=== PATIENT | female | born 1995 | race African-American/Black ===

== ENCOUNTER 2016-08-27 15:04 | Emergency (ER) | payer OTHER ==
[~2016-08-27] VITALS: Ht 165.1 cm; Wt 103.0 kg
[~2016-08-27 15:04] MED LIST: MUCINEX1200 MG PO; VENTOLIN HFA18 GM IH
[2016-08-27 16:24] LABS: HEMATOCRIT 37.4 % (36.0-46.0); MCH 27.5 PG (29.0-34.0); MCHC 32.6 G/DL (30.0-36.0); MCV 84.2 FL (83-99); PLATELET COUNT 359 K/uL (156-360); RBC DIS.WIDTH-CV 13.3 % (11.8-14.6); RBC DIS.WIDTH-SD 40.5 % (39-53); RED BLOOD COUNT 4.44 M/uL (3.80-5.20); WHITE BLOOD COUNT 12.7 K/uL (4.1-10.2)
[2016-08-27 16:35] LABS: CHLORIDE 108 mEq/L (99-109); POTASSIUM 3.6 mEq/L (3.7-5.4); SODIUM 137 mEq/L (136-147)
[2016-08-27 16:36] LABS: GLUCOSE 73 mg/dL (70-99)
[2016-08-27 16:38] LABS: ANION GAP 7 MEQ/L (2-14)
[2016-08-27 16:40] LABS: GFR ESTIMATE (CALCULATED) > 59 mL/min/
[2016-08-27 16:41] LABS: UREA NITROGEN (BUN) 6 mg/dL (9-23)
[2016-08-27 16:57] LABS: ADD MIUA? NO; BILIRUBIN NEGATIVE; BLOOD NEGATIVE; COLOR STRAW ((YELLOW)); GLUCOSE (STRIP) NEGATIVE; KETONES NEGATIVE; LEUKOCYTES NEGATIVE; NITRITE NEGATIVE; PROTEIN (STRIP) NEGATIVE; SPECIFIC GRAVITY 1.008 (1.000-1.030); UCUL ADDED? NO; UROBILINOGEN 0.2 MG/DL (0.2-1.0)
[2016-08-27 17:23] LABS: QUANTITATIVE HCG 48961.2 MIU/ML
[2016-08-27 17:56] VITALS: BP 113/52
[2016-08-28 13:54] LABS: CHLAMYDIA TRACHOMATIS NEGATIVE; NEISSERIA GONORRHOEAE NEGATIVE
== END 2016-08-27 17:56 | disposition left against medical advice (07) ==
LOC: EME 15:04
PROVIDERS: Physician Assistant Medical
DX: O20.9 Hemorrhage in early pregnancy, unspecified (principal); Z3A.12 12 weeks gestation of pregnancy; R10.9 Unspecified abdominal pain; M54.5 Low back pain
CPT/HCPCS: 80048; 81003; 84702; 85027; 86900; 86901; 87210; 87491; 87591; 99281; 99284

== ENCOUNTER 2017-09-08 12:23 | Emergency (ER) | payer OTHER ==
[~2017-09-08] VITALS: Ht 165.1 cm; Wt 111.9 kg
[2017-09-08 12:49] VITALS: BP 134/86
[2017-09-08 13:23] LABS: HEMATOCRIT 37.7 % (36.0-46.0); HEMOGLOBIN 12.2 G/DL (11.9-15.5); MCH 27.4 PG (29.0-34.0); MCHC 32.4 G/DL (30.0-36.0); MCV 84.7 FL (83-99); PLATELET COUNT 386 K/uL (156-360); RBC DIS.WIDTH-CV 13.9 % (11.8-14.6); RBC DIS.WIDTH-SD 43.4 % (39-53); RED BLOOD COUNT 4.45 M/uL (3.80-5.20)
[2017-09-08 13:28] LABS: APPEARANCE CLEAR ((CLEAR)); BILIRUBIN NEGATIVE; BLOOD NEGATIVE; COLOR YELLOW ((YELLOW)); GLUCOSE (STRIP) NEGATIVE; KETONES NEGATIVE; LEUKOCYTES NEGATIVE; NITRITE NEGATIVE; PROTEIN (STRIP) NEGATIVE; SPECIFIC GRAVITY 1.017 (1.000-1.030); UCUL ADDED? NO; UROBILINOGEN 0.2 MG/DL (0.2-1.0)
[2017-09-08 13:33] LABS: ALBUMIN 3.9 g/dL (3.2-4.8); CHLORIDE 110 mEq/L (99-109); POTASSIUM 4.6 mEq/L (3.7-5.4); SODIUM 140 mEq/L (136-147)
[2017-09-08 13:35] LABS: GLUCOSE 90 mg/dL (70-99)
[2017-09-08 13:36] LABS: TOTAL PROTEIN 7.4 g/dL (6.4-8.3)
[2017-09-08 13:37] LABS: TOTAL BILIRUBIN 0.2 mg/dL (0.0-1.0)
[2017-09-08 13:39] LABS: ALKALINE PHOSPHATASE 108 IU/L (3-129); CREATININE 0.7 mg/dL (0.6-1.3); GFR ESTIMATE (CALCULATED) > 59 mL/min/
[2017-09-08 13:40] LABS: UREA NITROGEN (BUN) 10 mg/dL (9-23)
[2017-09-08 13:41] LABS: AST (GOT) 14 IU/L (2-34)
[2017-09-08 13:42] LABS: ALT (GPT) 19 IU/L (3-49)
[2017-09-08 13:48] LABS: QUANTITATIVE HCG < 4.0 MIU/ML
== END 2017-09-08 15:18 | disposition left against medical advice (07) ==
LOC: EME 12:23
DX: R10.30 Lower abdominal pain, unspecified (principal); R11.2 Nausea with vomiting, unspecified; Z53.20 Procedure and treatment not carried out because of patient's decision for unspecified reasons
CPT/HCPCS: 74176; 80053; 81003; 84702; 85027; 99281; 99283